=== PATIENT | male | born 1980 | race Caucasian/White ===

== ENCOUNTER 2016-12-05 19:03 | Emergency (ER) | payer OTHER ==
[~2016-12-05 19:03] MED LIST: BENTYL10 MG PO; IMODIUM2 MG PO; WELCHOL625 MG PO
== END 2016-12-05 20:59 ==
LOC: EDMED 19:03
DX: K62.89 Other specified diseases of anus and rectum (principal); Z90.49 Acquired absence of other specified parts of digestive tract